=== PATIENT | female | born 1940 | race African-American/Black ===

== ENCOUNTER 2022-11-04 11:16 | Outpatient (CLI) | payer MEDICARE | END 2022-11-04 23:59 | disposition home or self-care (01) | LOC: WOU 11:16 | PROVIDERS: ATTEND Specialist | DX: L02.31 Cutaneous abscess of buttock (principal); R21 Rash and other nonspecific skin eruption; M62.89 Other specified disorders of muscle; A49.01 Methicillin susceptible Staphylococcus aureus infection, unspecified site; Z88.1 Allergy status to other antibiotic agents; I10 Essential (primary) hypertension; M79.7 Fibromyalgia; Z88.0 Allergy status to penicillin; G89.29 Other chronic pain | CPT/HCPCS: 87070; G0463; A6209 ==

== ENCOUNTER 2022-11-11 11:30 | Outpatient (CLI) | payer MEDICARE | END 2022-11-11 23:59 | disposition home health service (06) | LOC: WOU 11:30 | PROVIDERS: ATTEND Specialist | DX: S31.819A Unspecified open wound of right buttock, initial encounter (principal); L02.31 Cutaneous abscess of buttock; B95.61 Methicillin susceptible Staphylococcus aureus infection as the cause of diseases classified elsewhere; X58.XXXA Exposure to other specified factors, initial encounter; M62.89 Other specified disorders of muscle; R21 Rash and other nonspecific skin eruption | CPT/HCPCS: 11042; A6197 ==

== ENCOUNTER 2022-11-25 11:57 | Outpatient (CLI) | payer MEDICARE | END 2022-11-25 23:59 | disposition home health service (06) | LOC: WOU 11:57 | PROVIDERS: ATTEND Specialist | DX: S31.819D Unspecified open wound of right buttock, subsequent encounter (principal); X58.XXXD Exposure to other specified factors, subsequent encounter; B95.61 Methicillin susceptible Staphylococcus aureus infection as the cause of diseases classified elsewhere; M62.89 Other specified disorders of muscle; I10 Essential (primary) hypertension | CPT/HCPCS: G0463 ==